=== PATIENT | male | born 1995 | race Caucasian/White ===

== ENCOUNTER 2024-10-10 09:10 | Emergency (ER) | payer OTHER, SELFPAY ==
[2024-10-10] VITALS (12 sets, daily range): BP systolic 141–148; BP diastolic 84–104; PULSE 89–118; RESP 15–33; TEMP 36.6; O2SAT 95–100
--- NOTE | ~2024-10-10 | CT_ITS ---
EXAMINATION: CT abdomen pelvis w con DATE: 10/10/2024 12:53 INDICATION: Left abdominal pain. TECHNIQUE: Computed tomography (CT) of the abdomen and pelvis was performed with 100 mL Omnipaque 350 intravenous contrast. Automated exposure control and iterative reconstruction technique were employe d. The dose-length product was 531.21 mGy-cm. COMPARISON: None. FINDINGS: The visualized portions of the lung bases demonstrate mild atelectasis. No pleural effusion . The heart size is normal. No pericardial effusion. There is diffuse hepatic steatosis. The gallblad garrett, spleen, pancreas, adrenal glands, and right kidney are normal. There is a delayed left-sided con trast nephrogram. There is mild left hydronephrosis and hydroureter. There is a 3 mm stone in distal left ureter. There are no dilated loops of bowel. The appendix is normal. There are no pathologically enlarged lymph nodes. There is no free intraperitoneal fluid. The bones are unremarkable. IMPRESSION: 1. 3 mm stone in distal left ureter with mild left hydronephrosis and hydroureter. Reviewed, dictated and finalized at location A. [facility] IMPRESSION: 1. 3 mm stone in distal left ureter with mild left hydronephrosis and hydrouret er.
--- NOTE | 2024-10-10 11:21 | ED_ITS ---
HPI - Abdominal Pain General Chief Complaint: Abdominal Pain <Tania Hurst PA-C - Last Filed: 10/14/24 17:23> Stated Complaint: flank/abd pain <Tania Hurst PA-C - Last Filed: 10/14/24 17:23> Time Seen by Provider: 10/10/24 11:21 <Tania Hurst PA-C - Last Filed: 10/14/24 17:23> Focused HPI: This is a 29-year-old male that presents to the emergency department for left-sided abdominal pain. Reports radiation into the flank. No associated symptoms. Denies fevers, vomiting, dysuria or hematuria. GENERAL: Well-appearing, well-nourished, and in no acute distress. HEAD: Normocephalic, atraumatic. CHEST: Clear to auscultation. ?No respiratory distress. HEART: Regular rate and rhythm.? NEURO: ?Alert and oriented x3. Patient screened in triage and initial orders placed.? ?Additional care and disposition to be based upon?diagnostic testing and treatment. <Tania Hurst PA-C - Last Filed: 10/14/24 17:23> History of Present Illness HPI narrative: I agree of the above HPI <Emmanuel Ellis MD - Last Filed: 10/10/24 18:56> Related Data Allergies/Adverse Reactions: Allergies Allergy/AdvReac Type Severity Reaction Status Date / Time No Known Allergies Allergy Verified 10/10/24 11:44 <Tania Hurst PA-C - Last Filed: 10/14/24 17:23> Review of Systems 2 Review of Systems: All systems reviewed & are unremarkable except as noted in HPI and below <Emmanuel Ellis MD - Last Filed: 10/10/24 18:56> PMFSH Past Medical History Medical History: Medical History (Updated 10/14/24 @ 17:23 by Tania Hurst PA-C) No active medical problems <Tania Hurst PA-C - Last Filed: 10/14/24 17:23> Social History Social History: Social History (Updated 10/14/24 @ 17:23 by Tania Hurst PA-C) Substance use: never <Tania Hurst PA-C - Last Filed: 10/14/24 17:23> Exam 2 Narrative: APPEARANCE: Well appearing, no pain, no distress, well-nourished. HEAD: normocephalic, atraumatic. EYES: PERRLA/EOMI, conjunctivae clear. NOSE: Normal no drainage EARS:TMS clear with good light reflex. THROAT: Pharynx clear, no exudate. NECK: Supple. No adenopathy, no masses. RESPIRATORY: Airway patent, respirations nonlabored. Clear to auscultation bilaterally, no rales, rhonchi, wheezing. CARDIOVASCULAR: Regular rate and rhythm without murmurs rubs or gallops. ABDOMINAL: Left CVA tenderness to palpation MUSCULOSKELETAL: Moves all extremities. Strength/ROM intact, No edema, No calf tenderness. NEURO: Alert. Cranial nerves II through XII intact. Grossly intact SKIN: Warm, dry. Normal Color <Emmanuel Ellis MD - Last Filed: 10/10/24 18:56> Course Vital Signs Vital signs: Vital Signs Temperature 97.8 F 10/10/24 09:12 Pulse Rate 105 H 10/10/24 09:12 Respiratory Rate 18 10/10/24 09:12 Blood Pressure 142/84 H 10/10/24 09:12 Pulse Oximetry 100 10/10/24 09:12 Oxygen Delivery Room Air 10/10/24 09:12 Temperature 97.9 F 10/10/24 14:21 Pulse Rate 99 10/10/24 14:21 Respiratory Rate 16 10/10/24 14:21 Blood Pressure 141/104 H 10/10/24 14:21 Pulse Oximetry 100 10/10/24 14:21 Oxygen Delivery Room Air 10/10/24 11:34 <Tania Hurst PA-C - Last Filed: 10/14/24 17:23> Vital Signs Temperature 97.8 F 10/10/24 09:12 Pulse Rate 105 H 10/10/24 09:12 Respiratory Rate 18 10/10/24 09:12 Blood Pressure 142/84 H 10/10/24 09:12 Pulse Oximetry 100 10/10/24 09:12 Oxygen Delivery Room Air 10/10/24 09:12 Temperature 97.9 F 10/10/24 14:21 Pulse Rate 99 10/10/24 14:21 Respiratory Rate 16 10/10/24 14:21 Blood Pressure 141/104 H 10/10/24 14:21 Pulse Oximetry 100 10/10/24 14:21 Oxygen Delivery Room Air 10/10/24 11:34 <Emmanuel Ellis MD - Last Filed: 10/10/24 18:56> MDM - Abdominal Pain MDM Narrative Medical decision making narrative: 29-year-old male present to the emergency department for evaluation for left flank pain. Patient denies any pain with urination. Patient attempted to make a urine sample but missed the cup. Patient is afebrile but does have a leukocytosis of 18.6. Hemoglobin of 15.7. CMP has no acute abnormalities. CT abdomen pelvis does show a 3 mm ureteral calculi at the distal left ureter. On re-evaluation patient states his pain is significantly improved. Patient will be provided Flomax, Zofran, Huntington for symptom control at home. Patient will be encouraged close follow-up with Urology. With patient's inability to provide a a UA but having a leukocytosis patient will be started on Keflex. Patient was encouraged to return to the emergency department if you have any worsening symptoms including uncontrolled nausea vomiting, increased pain and fever. All questions concerns were addressed. <Emmanuel Ellis MD - Last Filed: 10/10/24 18:56> Differential Diagnosis Differential diagnosis: Likely abdominal pain, acute appendicitis, constipation, diverticulitis, gastroenteritis, pancreatitis and small bowel obstruction <Emmanuel Ellis MD - Last Filed: 10/10/24 18:56> Lab Data Attestation: I reviewed the patient's lab results. <Emmanuel Ellis MD - Last Filed: 10/10/24 18:56> Result diagrams: 10/10/24 11:47 10/10/24 11:47 <Tania Hurst PA-C - Last Filed: 10/14/24 17:23> Labs: Lab Results 10/10/24 10/10/24 Range/Units 11:47 13:25 WBC 18.6 H (4.5-10.0) K/mm3 RBC 5.56 (4.6-6.20) M/mm3 Hgb 15.7 (14.0-18.0) g/dL Hct 47.0 (42.0-52.0) % MCV 84.5 (80-100) fl MCH 28.2 (26-34) pg MCHC 33.4 (32-36) g/dl RDW 13.5 (11.5-14.5) % Plt Count 272 (150-375) k/mm3 MPV 11.9 H (7.4-10.4) fl Immature Gran % (Auto) 0.5 (0-0.5) % Neut % (Auto) 85.2 H (45.5-73.1) % Lymph % (Auto) 6.6 L (18.3-44.2) % Scott % (Auto) 7.1 (2.6-8.5) % Eos % (Auto) 0.2 (0-4.4) % Baso % (Auto) 0.4 (0.2-1.2) % Lymph # (Auto) 1.22 (0.9-3.2) K/mm3 Scott # (Auto) 1.3 H (0.1-0.6) K/mm3 Eos # (Auto) 0.0 (0-0.3) K/mm3 Baso # (Auto) 0.1 (0.0-0.1) K/mm3 Abs Immat Gran (auto) 0.10 H (0.00-0.031) K/mm3 Absolute Neuts (auto) 15.8 H (1.3-6.7) K/mm3 Absolute Nucleated RBC 0.000 (0.0-0.012) K/mm3 Nucleated RBC % 0.0 (0.0-0.2) % Sodium 135 L (137-145) mmol/L Potassium 4.1 (3.4-5.0) mmol/L Chloride 107 (98-107) mmol/L Carbon Dioxide 24 (22-30) mmol/L Anion Gap 4 (4-12) mmol/L BUN 18 (9-20) mg/dL Creatinine 1.00 (0.7-1.3) mg/dL Estim Creat Clear Calc 88 ml/min Estimated GFR > 60 (59 - ) Glucose 108 (65-110) mg/dL Calcium 9.6 (8.4-10.2) mg/dL Total Bilirubin 0.8 (0.2-1.3) mg/dL AST 35 (17-59) U/L ALT 58 H (6-50) U/L Alkaline Phosphatase 84 (38-126) U/L Total Protein 9.0 H (6.3-8.2) g/dL Albumin 4.9 (3.5-5.1) g/dL Lipase 48 (23-300) U/L Urine Color Yellow (Yellow) Urine Appearance Cloudy H (Clear) Urine pH 6.5 (5.0-9.0) Ur Specific [place] > 1.045 H (1.001-1.035) Urine Protein 1+ H (Negative) mg/dL Urine Glucose (UA) Negative (Negative) mg/dL Urine Ketones Trace H (Negative) mg/dL Ur Blood (Man) 3+ H (Negative) Urine Nitrate Negative (Negative) Urine Bilirubin Negative (Negative) Urine Urobilinogen 1.0 (<2.0) mg/dL Leukocyte Esterase Rfl Negative (Negative) PANCHITO/UL Urine RBC >100 H (0-2) /hpf Urine WBC 0-5 (0-3) /hpf Ur Squamous Epith Cells None seen (Few) /hpf Urine Bacteria None seen /hpf Urine Casts 0-2 <Tania Hurst PA-C - Last Filed: 10/14/24 17:23> Lab Results 10/10/24 10/10/24 Range/Units 11:47 13:25 WBC 18.6 H (4.5-10.0) K/mm3 RBC 5.56 (4.6-6.20) M/mm3 Hgb 15.7 (14.0-18.0) g/dL Hct 47.0 (42.0-52.0) % MCV 84.5 (80-100) fl MCH 28.2 (26-34) pg MCHC 33.4 (32-36) g/dl RDW 13.5 (11.5-14.5) % Plt Count 272 (150-375) k/mm3 MPV 11.9 H (7.4-10.4) fl Immature Gran % (Auto) 0.5 (0-0.5) % Neut % (Auto) 85.2 H (45.5-73.1) % Lymph % (Auto) 6.6 L (18.3-44.2) % Scott % (Auto) 7.1 (2.6-8.5) % Eos % (Auto) 0.2 (0-4.4) % Baso % (Auto) 0.4 (0.2-1.2) % Lymph # (Auto) 1.22 (0.9-3.2) K/mm3 Scott # (Auto) 1.3 H (0.1-0.6) K/mm3 Eos # (Auto) 0.0 (0-0.3) K/mm3 Baso # (Auto) 0.1 (0.0-0.1) K/mm3 Abs Immat Gran (auto) 0.10 H (0.00-0.031) K/mm3 Absolute Neuts (auto) 15.8 H (1.3-6.7) K/mm3 Absolute Nucleated RBC 0.000 (0.0-0.012) K/mm3 Nucleated RBC % 0.0 (0.0-0.2) % Sodium 135 L (137-145) mmol/L Potassium 4.1 (3.4-5.0) mmol/L Chloride 107 (98-107) mmol/L Carbon Dioxide 24 (22-30) mmol/L Anion Gap 4 (4-12) mmol/L BUN 18 (9-20) mg/dL Creatinine 1.00 (0.7-1.3) mg/dL Estim Creat Clear Calc 88 ml/min Estimated GFR > 60 (59 - ) Glucose 108 (65-110) mg/dL Calcium 9.6 (8.4-10.2) mg/dL Total Bilirubin 0.8 (0.2-1.3) mg/dL AST 35 (17-59) U/L ALT 58 H (6-50) U/L Alkaline Phosphatase 84 (38-126) U/L Total Protein 9.0 H (6.3-8.2) g/dL Albumin 4.9 (3.5-5.1) g/dL Lipase 48 (23-300) U/L Urine Color Yellow (Yellow) Urine Appearance Cloudy H (Clear) Urine pH 6.5 (5.0-9.0) Ur Specific [place] > 1.045 H (1.001-1.035) Urine Protein 1+ H (Negative) mg/dL Urine Glucose (UA) Negative (Negative) mg/dL Urine Ketones Trace H (Negative) mg/dL Ur Blood (Man) 3+ H (Negative) Urine Nitrate Negative (Negative) Urine Bilirubin Negative (Negative) Urine Urobilinogen 1.0 (<2.0) mg/dL Leukocyte Esterase Rfl Negative (Negative) PANCHITO/UL Urine RBC >100 H (0-2) /hpf Urine WBC 0-5 (0-3) /hpf Ur Squamous Epith Cells None seen (Few) /hpf Urine Bacteria None seen /hpf Urine Casts 0-2 <Emmanuel Ellis MD - Last Filed: 10/10/24 18:56> Imaging Data Radiologist's impression: ITS Impressions Abdomen/Pelvis CT 10/10/24 12:56 IMPRESSION: 1. 3 mm stone in distal left ureter with mild left hydronephrosis and hydroureter. <Tania Hurst PA-C - Last Filed: 10/14/24 17:23> ITS Impressions Abdomen/Pelvis CT 10/10/24 12:56 IMPRESSION: 1. 3 mm stone in distal left ureter with mild left hydronephrosis and hydroureter. <Emmanuel Ellis MD - Last Filed: 10/10/24 18:56> Critical Care Time Critical Care Time Critical Care Time: No <Tania Hurst PA-C - Last Filed: 10/14/24 17:23> Discharge Plan Discharge Clinical Impression: Calculi, ureter <Tania Hurst PA-C - Last Filed: 10/14/24 17:23> Patient Disposition: Home, Self-Care <Tania Hurst PA-C - Last Filed: 10/14/24 17:23> Condition: Stable <Tania Hurst PA-C - Last Filed: 10/14/24 17:23> Instructions: Antibiotic Form, Kidney Stones (ED), How to Strain Your Urine (ED), Flank Pain (ED) <Tania Hurst PA-C - Last Filed: 10/14/24 17:23> Additional Instructions: Antibiotic as directed until completed. Ibuprofen for pain control. Flomax as directed to help you pass the stone, Zofran as needed for nausea control. Huntington as needed for additional pain control. If you have any worsening symptoms then please call or return to the emergency department. Have close follow-up with Urology. <Tania Hurst PA-C - Last Filed: 10/14/24 17:23> Patient Language: Thai <Tania Hurst PA-C - Last Filed: 10/14/24 17:23> Prescriptions: New cefdinir 300 mg capsule 300 mg PO Q12H 5 Days Qty: 10 0RF hydrocodone-acetaminophen 5-325 mg tablet 1 tablet PO Q12H PRN (Reason: pain) 7 Days Qty: 14 0RF ondansetron 4 mg tablet,disintegrating 4 mg PO Q8H PRN (Reason: nausea and vomiting) Qty: 14 0RF tamsulosin [Flomax] 0.4 mg capsule 0.4 mg PO DAILY 10 Days Qty: 10 0RF <Tania Hurst PA-C - Last Filed: 10/14/24 17:23> Follow-up/Referrals: Marvin Wolf MD [Physician] - Eliud Montanez MD [Primary Care Provider] - <Tania Hurst PA-C - Last Filed: 10/14/24 17:23>
--- NOTE | 2024-10-10 11:52 | PC.NURSE ---
Pt. asked to provide urine sample. Pt. handed this RN urine sample stating I dunno if it will work. I had to get it from the toilet bowl. Pt. educated that we cannot use a urine sample that has been mixed with toilet water. Pt. verbalized understanding.
[2024-10-10 11:55] LABS: Basophils Absolute Auto 0.1 K/mm3 (0.0-0.1); Basophils Percent Auto 0.4 % (0.2-1.2); Eosinophils Percent Auto 0.2 % (0-4.4); Hemoglobin 15.7 g/dL (14.0-18.0); Immature Granulocyte Percent A 0.5 % (0-0.5); Lymphocytes Absolute Auto 1.22 K/mm3 (0.9-3.2); Lymphocytes Percent Auto 6.6 % (18.3-44.2); Mean Corpuscular HGB Conc 33.4 g/dl (32-36); Mean Corpuscular Hemoglobin 28.2 pg (26-34); Mean Corpuscular Volume 84.5 fl (80-100); Mean Platelet Volume 11.9 fl (7.4-10.4); Monocytes Absolute Auto 1.3 K/mm3 (0.1-0.6); Monocytes Percent Auto 7.1 % (2.6-8.5); Neutrophils Absolute Auto 15.8 K/mm3 (1.3-6.7); Neutrophils Percent Auto 85.2 % (45.5-73.1); Platelet Count Result 272 k/mm3 (150-375); Red Blood Count 5.56 M/mm3 (4.6-6.20); Red Cell Distribution Width 13.5 % (11.5-14.5); White Blood Count 18.6 K/mm3 (4.5-10.0)
[2024-10-10 12:06] LABS: Alanine Aminotransferase 58 U/L (6-50); Albumin Level 4.9 g/dL (3.5-5.1); Alkaline Phosphatase 84 U/L (38-126); Anion Gap 4 mmol/L (4-12); Aspartate Amino Transferase 35 U/L (17-59); Bilirubin,Total 0.8 mg/dL (0.2-1.3); Blood Urea Nitrogen 18 mg/dL (9-20); Calcium 9.6 mg/dL (8.4-10.2); Carbon Dioxide 24 mmol/L (22-30); Chloride 107 mmol/L (98-107); Estimated CRCL calculation 88 ml/min; Estimated Glomerular Filt Rate > 60; Glucose 108 mg/dL (65-110); Lipase 48 U/L (23-300); Potassium 4.1 mmol/L (3.4-5.0); Sodium 135 mmol/L (137-145)
[2024-10-10 13:40] LABS: Add Urine Microscopic? YES; Appearance Urine Cloudy (Clear); Bilirubin Urine Negative (Negative); Blood Urine 3+ (Negative); Color Urine Yellow (Yellow); Glucose Urine UA Negative (Negative); Ketones Urine Trace mg/dL (Negative); Leukocyte Esterase Ur Negative LEU/UL (Negative); Nitrate Urine Negative (Negative); Protein Urine 1+ mg/dL (Negative); Specific Grav Ur > 1.045 (1.001-1.035); pH Urine 6.5 (5.0-9.0)
[2024-10-10 13:41] LABS: Bacteria Urine None Seen /hpf; Non Pathogenic Casts 0-2; RBC Urine >100 /hpf (0-2); Squamous Epithelial Cell Urine None Seen /hpf (Few); WBC Urine 0-5 /hpf (0-3)
== END 2024-10-10 14:22 | disposition home or self-care (01) ==
PROVIDERS: Physician Assistant; Emergency Provider Emergency Medicine; PCP Family Medicine Adolescent Medicine
DX: N20.1 Calculus of ureter (principal)
CPT/HCPCS: 36415; 74177; 80053; 81001; 83690; 85025; 99284; Q9967